=== PATIENT | female | born 1950 | race African-American/Black ===

== ENCOUNTER 2017-01-04 13:42 | Emergency (ER) | payer SELFPAY ==
[2017-01-04 13:49] VITALS: BMI 31.3
[2017-01-04] MEDS ORDERED: IBUPROFEN 600 MG TABLET (FP) PO ONE (14:39)
[2017-01-04] MEDS ORDERED: CARVEDILOL 25 MG TABLET (FP) PO ONE (14:45)
[2017-01-04] MEDS ORDERED: cloNIDine HCL 0.1 MG TABLET PO ONE (14:45)
[2017-01-04] MEDS ORDERED: CARVEDILOL 12.5 MG TABLET (FP) ONE (14:52)
[2017-01-04 15:27] LABS: URINE APPEARANCE CLEAR; URINE BILIRUBIN NEGATIVE (NEGATIVE); URINE BLOOD NEGATIVE (NEGATIVE); URINE COLOR COLORLESS; URINE GLUCOSE (UA) 1+ (NEGATIVE); URINE KETONE NEGATIVE (NEGATIVE); URINE LEUK ESTERASE NEGATIVE (NEGATIVE); URINE NITRITE NEGATIVE (NEGATIVE); URINE UROBILINOGEN NEGATIVE E.U./dl (0.2-1.0)
[2017-01-04 15:32] LABS: URINE PROTEIN 2+ (NEGATIVE)
[2017-01-04 15:38] LABS: URINE HYALINE CAST 1 /lpf; URINE RBC 1 /hpf (0-3); URINE WBC 1 /hpf (3-5)
--- NOTE | 2017-01-04 16:00 | PDOC ---
History of Present Illness - General Chief Complaint: Injury Stated Complaint: JOB INJURY, HTN, vagina pain, back pain Time Seen by Provider: 01/04/17 14:19 History Source: Patient Exam Limitations: No Limitations - History of Present Illness Initial Comments: 01/04/17 14:50 66-year-old female with history of hypertension diabetes presents the ED with complaints of low back pain and pelvic/vaginal pain after she was at work and a coworker lifted up a metal bench and Clammy and while she was sitting on a causing her discomfort. Patient was able to get up after words and took Tylenol but states pain did not get relieved with Tylenol decided come to the ER. Patient denies vaginal discharge, vaginal bleeding, redness to her skin. Or history of low back pain. Patient has voided twice since incident which she states was not abnormal for her. Patient took her hypertension medications here despite her blood pressure being elevated in triage. Occurred: reports: just prior to arrival Severity: reports: mild Pain Location: reports: back, pelvis Method of Injury: Yes: other Associated Symptoms (Fall): denies symptoms Past History - Past Medical History Allergies/Adverse Reactions: Allergies Allergy/AdvReac Type Severity Reaction Status Date / Time No Known Allergies Allergy Unverified 01/04/17 15:02 Home Medications: Ambulatory Orders Amlodipine Besylate [Norvasc -] 10 mg PO DAILY 01/04/17 Atorvastatin Calcium [Lipitor] 10 mg PO DAILY 01/04/17 Carvedilol 25 mg PO BID 01/04/17 Clonidine HCl 0.2 mg PO BID 01/04/17 Furosemide [Lasix] 40 mg PO DAILY 01/04/17 Glipizide Xl [Glucotrol Xl -] 10 mg PO DAILY@0700 01/04/17 Lisinopril [Zestril] 40 mg PO DAILY 01/04/17 Diabetes: Yes HTN: Yes - Psycho/Social/Smoking Cessation Hx Suicidal Ideation: No Smoking History: Never smoked Information on smoking cessation initiated: No Hx Alcohol Use: No Drug/Substance Use Hx: No Substance Use Type: None Patient Lives Alone: No Review of Systems - Review of Systems Able to Perform ROS?: Yes Constitutional: No: Symptoms Reported HEENTM: No: Symptoms Reported Respiratory: No: Symptoms reported Cardiac (ROS): No: Symptoms Reported : Yes: See HPI Musculoskeletal: Yes: Back Pain (low) Integumentary: No: Symptoms Reported Neurological: No: Symptoms reported Endocrine: No: Symptoms Reported Hematologic/Lymphatic: No: Symptoms Reported *Physical Exam - Vital Signs Last Vital Signs Temp Pulse Resp BP Pulse Ox 97.8 F 72 17 216/111 100 01/04/17 13:44 01/04/17 14:35 01/04/17 14:35 01/04/17 14:35 01/04/17 14:35 - Physical Exam General Appearance: Yes: Nourished, Appropriately Dressed. No: Apparent Distress Cardiovascular: positive: Regular Rhythm, Regular Rate. negative: Murmur Female Pelvic Exam: positive: normal external exam. negative: discharge, adnexal tenderness, vaginal bleeding Gastrointestinal/Abdominal: positive: Normal Bowel Sounds, Soft, Tenderness ( mons pubis region) Musculoskeletal: positive: Other (lumbar paraspinous region bilaterally.). negative: Vertebral Tenderness Extremity: positive: Normal Inspection, Normal Range of Motion Integumentary: positive: Normal Color Neurologic: positive: Motor Strength 5/5 ED Treatment Course - ADDITIONAL ORDERS Additional order review: Laboratory Results 01/04/17 15:16 Urine Color Colorless Urine Appearance Clear Urine pH 6.0 Ur Specific [place] 1.010 Urine Protein 2+ H Urine Glucose (UA) 1+ H Urine Ketones Negative Urine Blood Negative Urine Nitrite Negative Urine Bilirubin Negative Urine Urobilinogen Negative Ur Leukocyte Esterase Negative Urine RBC 1 Urine WBC 1 Hyaline Casts 1 - Medications Given in the ED: ED Medications Discontinued Medications Generic Name Dose Route Start Last Admin Trade Name Freq PRN Reason Stop Dose Admin Carvedilol 25 mg 01/04/17 14:45 01/04/17 14:56 Coreg - PO 01/04/17 14:46 25 mg ONCE ONE Administration Clonidine 0.2 mg 01/04/17 14:45 01/04/17 14:56 Catapres - PO 01/04/17 14:46 0.2 mg ONCE ONE Administration Ibuprofen 600 mg 01/04/17 14:39 01/04/17 14:56 Motrin - PO 01/04/17 14:40 600 mg ONCE ONE Administration Medical Decision Making - Medical Decision Making 01/04/17 15:07 Patient here with complaints of low back pain and pelvic pain after being lifted on a metal chair and coming down on the ground while sitting on it. Patient exam had point tenderness to the mons pubis but no pelvic or abdominal pain. Patient also with lumbar paraspinous muscle tenderness at the level of L5. Patient ordered for Motrin for discomfort and given her choric and clonidine secondary to elevated blood pressure which she states is due to take her medications now. Patient also ordered for urinalysis. 01/04/17 16:09 Laboratory Tests 01/04/17 15:16 Urine Protein 2+ H Urine Glucose (UA) 1+ H Urine Nitrite Negative Ur Leukocyte Esterase Negative Urine RBC 1 Urine WBC 1 Selected Entries 01/04/17 15:51 Blood Pressure 180/88 [Left Arm] Patient will be revitalized and 15 minutes which is one hour from time she received the medication. 01/04/17 16:38 Selected Entries 01/04/17 16:20 Temperature 98.6 F Pulse Rate [ 60 Left Radial] Respiratory 20 Rate Blood Pressure 159/87 [Left Arm] O2 Sat by Pulse 100 Oximetry (%) Patient will be discharged home with recommendations to take Motrin for discomfort and to take the rest of her medications tonight as prescribed. Patient also recommended to apply heating pad to the affected area for discomfort relief *DC/Admit/Observation/Transfer Diagnosis at time of Disposition: Contusion Qualifiers: Encounter type: initial encounter Contusion area: lower back Qualified Code(s) : S30.0XXA - Contusion of lower back and pelvis, initial encounter - Discharge Dispostion Disposition: HOME Condition at time of disposition: Improved - Patient Instructions Printed Discharge Instructions: DI for Contusion, High Blood Pressure Additional Instructions: Please take Motrin for discomfort and apply a heating pad to the affected area as needed. If symptoms worsen despite above recommendations please follow-up with your PCP. - Post Discharge Activity Work/School Note: Back to Work
[2017-01-04 16:37] VITALS: BP 159/87; PULSE 60; TEMP 98.6
== END 2017-01-04 17:00 | disposition home or self-care (01) ==
LOC: JER 13:42
DX: S30.0XXA Contusion of lower back and pelvis, initial encounter (principal); W17.89XA Other fall from one level to another, initial encounter; Y93.89 Activity, other specified; Y92.9 Unspecified place or not applicable; Y99.0 Civilian activity done for income or pay; I10 Essential (primary) hypertension; E11.9 Type 2 diabetes mellitus without complications
CPT/HCPCS: 81003; 81015; 99282-25